=== PATIENT | female | born 1965 | race Caucasian/White ===

== ENCOUNTER 2021-04-10 05:50 | Day surgery (SDC) | payer OTHER ==
[~2021-04-10] VITALS: Ht 175.3 cm; Wt 105.0 kg
[~2021-04-10 05:50] MED LIST: BAYER CHEWABLE81 MG PO; CLARITIN-D 121 EACH PO; FISH OIL 1,0001 EAC2 NG; OSTERA TABLET1 EACH PO
[2021-04-10] MEDS ORDERED: SUPER B COMPLE1 EACH PO (06:17)
--- NOTE | 2021-04-10 07:52 | NUR ---
PT ALERT, ORIENTED AND SUPPORTED BY HER CHRISTIAN. PT SEEMS INFORMED, ALL QUESTIONS ASKED ANSWERED. BOTH ARE PLEASANT, REQUESTED PRAYER, WILL FOLLOW. .
--- NOTE | 2021-04-10 08:16 | NUR ---
04/10/21 0816 Alyssa Cornell 0804 PT ARRIVED TO PACU ON 8L VIA MASK, PT STARTS MOVING IN BED. VSS. ORAL AIRWAY IN PLACE. RESP EVEN AND UNLABORED. 0806 PT OPENS HER EYES AND AIRWAY REMOVED. PT DENIES PAIN AND NAUSEA. PT REORIENTED TO PACU. 0808 O2 REMOVED. PLAN OF CARE DISCUSSED AND ICE PACK IN PLACE.
--- NOTE | 2021-04-10 08:34 | NUR ---
PT IS BACK TO DS FROM PACU. SHE IS GIVEN WATER AND SNACKS. CALL LIGHT WITHIN REACH. NO C/O'S PAIN. NO ADDITIONAL NEEDS AT THIS TIME.
--- NOTE | 2021-04-10 09:22 | NUR ---
PATIENT REPORTS WILL NEED TO GET UP TO BATHROOM AND REQUESTED TO TAKE PAIN MEDICATION BEFORE ACTIVITY. ADMINISTER PAIN MEDICATION PER MAR. PATIENT TOLERATING SNACKS AND WATER WELL, NO NAUSEA. DRESSING C/D/I. STRONG PEDAL PULSE. ICE IN PLACE. RATES PAIN 1/10 AT REST AND APPEARS AWAKE AND ORIENTED. AT BEDSIDE. CALL LIGHT WITHIN REACH.
[2021-04-10] MEDS ORDERED: DICLOFENAC SODI75 MG PO (09:27)
[2021-04-10] MEDS ORDERED: HYDROCODON-ACE1 EA10 PO (09:27)
--- NOTE | 2021-04-10 10:38 | NUR ---
PROVIDED DISCHARGE TO PATIENT, ANSWERED QUESTIONS AND CONCERNS. PATIENT VERBALIZED UNDERSTANDING. VSS. PROVIDED WHEELCHAIR RIDE TO FRONT.
--- NOTE | 2021-04-20 14:25 | OR ---
[facility] [address], [place] [address] Signed DATE OF OPERATION: 04/10/2021 SURGEON: Jero Jaramillo MD PREOPERATIVE DIAGNOSIS: Medial meniscus tear, right knee. POSTOPERATIVE DIAGNOSIS: Medial meniscus tear, right knee. PROCEDURE PERFORMED: Right knee arthroscopy with partial medial meniscectomy. [employer]: Kamilla Law PA-C. was present and critical for all portions of procedure. ANESTHESIA: General. BLOOD LOSS: Minimal. BRIEF HISTORY: Kate is a 56-year-old female with pain and giving out her knee. MRI is consistent with far posteromedial meniscus tear. Risks and benefits of operative treatment were discussed with her and she elected to proceed. DESCRIPTION OF PROCEDURE: Once consent was obtained, she was taken to the operating room. After adequate anesthesia, she was placed on operating table, left leg was flexed, abducted, and externally rotated on a well-padded leg lind, right was placed in well-padded proximal thigh tourniquet and placed in a leg lind. Portal sites were pre-injected using 0.25% Marcaine with epinephrine under alcohol prep. The leg was prepped and draped in a standard sterile fashion and the inferolateral and superolateral portals were established and the scope was introduced in the knee. ARTHROSCOPIC FINDINGS: Mild synovitis was noted throughout the knee. 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 The trochlea was intact. Medial and lateral gutter showed mild osteophyte formation. ACL was intact. PCL was intact. Lateral Electronically Signed By: JERO JARAMILLO MD 04/10/21 1046 Electronically Signed By: JERO JARAMILLO MD 04/22/21 0711 PATIENT NAME: KATE HERNANDEZ OPERATIVE REPORT DATE OF : 63 REPORT #: [id number] PHYSICIAN: JERO JARAMILLO MD PCP: ESAU BUTT REPORT IS CONFIDENTIAL AND NOT TO BE RELEASED WITHOUT AUTHORIZATION [facility] [address], [place] [address] Signed compartment was intact with diffuse areas of grade 2 chondromalacia. This was primarily on the femur. The medial compartment showed diffuse grade 2 and small areas of grade 3 chondromalacia over probably 30% of the femoral condyle. The meniscus was intact except for the far posterior root, which showed a partial avulsion with some intact tissue approximately 30-40%. The meniscus was not particularly hypermobile, although the root was movable by about half a cm. The remainder of the medial compartment showed just diffuse osteoarthritis. The meniscus was debrided and the root connection was left intact. The debris was evacuated and the scope was withdrawn from the knee. Portals were closed with 3-0 nylon and the knee was injected with 60 mg Toradol at the end of the case. The wounds were dressed with Adaptic, ABD, and Saul wrap. She tolerated the procedure well. All sponge, needle, and instrument counts were correct. Jero Jaramillo MD BA/MODL /[id number] Copies: ~ Electronically Signed By: JERO JARAMILLO MD 04/10/21 1046 Electronically Signed By: JERO JARAMILLO MD 04/22/21 0711 PATIENT NAME: KATE HERNANDEZ OPERATIVE REPORT DATE OF : 63 REPORT #: [id number] PHYSICIAN: JERO JARAMILLO MD PCP: ESAU BUTT REPORT IS CONFIDENTIAL AND NOT TO BE RELEASED WITHOUT AUTHORIZATION
== END 2021-04-10 10:40 | disposition home or self-care (01) ==
LOC: DS 05:50
PROVIDERS: ATTEND Specialist
PROC: 0SBC4ZZ Excision of Right Knee Joint, Percutaneous Endoscopic Approach (ICD-10-PCS; principal; 2021-04-10 06:45)
DX: S83.241A Other tear of medial meniscus, current injury, right knee, initial encounter (principal); M22.41 Chondromalacia patellae, right knee; M65.9 Synovitis and tenosynovitis, unspecified; M17.11 Unilateral primary osteoarthritis, right knee; M25.761 Osteophyte, right knee; X50.0XXA Overexertion from strenuous movement or load, initial encounter; Z79.82 Long term (current) use of aspirin; Z87.891 Personal history of nicotine dependence
CPT/HCPCS: 01400; J0690; J1100; J1885; J2001; J2405; J3010; J7121